=== PATIENT | female | born 1970 | race Caucasian/White ===

== ENCOUNTER 2017-02-01 11:13 | Emergency (ER) | payer BC ==
[2017-02-01] MEDS ORDERED: FUL-GLO OP ONE ×2 (13:10→13:15)
[2017-02-01] MEDS ORDERED: TETRACAINE 0.5% OD ONE (13:10)
[2017-02-01] MEDS ORDERED: BSS ONE (13:15)
[2017-02-01] MEDS ORDERED: TETRACAINE 0.5% ONE (13:16)
[2017-02-01] MEDS ORDERED: PERCOCET 5/325 PO ONE (13:35)
[2017-02-01] MEDS ORDERED: BOOSTRIX IM ONE (13:52)
[2017-02-01 14:39] VITALS: BP 108/59
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
== END 2017-02-01 14:39 | disposition home or self-care (01) ==
LOC: ED 11:13
DX: S05.01XA Injury of conjunctiva and corneal abrasion without foreign body, right eye, initial encounter (principal); Z90.49 Acquired absence of other specified parts of digestive tract; W50.4XXA Accidental scratch by another person, initial encounter; Y93.89 Activity, other specified; Y99.8 Other external cause status; Y92.098 Other place in other non-institutional residence as the place of occurrence of the external cause
CPT/HCPCS: 90471; 90715; 99283